=== PATIENT | female | born 1975 | race American Indian/Alaskan Native ===

== ENCOUNTER 2018-05-30 11:38 | Emergency (ER) | payer BC ==
--- NOTE | 2018-05-30 12:53 | Emergency Department Report ---
ED Dysuria HPI - HPI Chief Complaint: Vaginal Bleeding Stated Complaint: CHEST PAIN/HEAVY MENSTRAL FOR 1 MONTH Time Seen by Provider: 05/30/18 12:50 Duration: since 05-02 Severity: Severe Symptoms: Dysuria: No, Frequency: No, Suprapubic Pain: No, Flank Pain: No, Fever: No, Hematuria: No, Abdominal Pain: No, Previous UTI's: No Other History: 42 yo AA female with DUB since 05/02. hx fibroids with planned surgery later this month. current meds. zantac. amox. propranolol. integra ED Review of Systems ROS: Stated complaint: CHEST PAIN/HEAVY MENSTRAL FOR 1 MONTH Other details as noted in HPI Comment: All other systems reviewed and negative Constitutional: denies: chills Eyes: denies: eye pain ENT: denies: ear pain Respiratory: denies: cough Cardiovascular: denies: palpitations Endocrine: denies: excessive sweating Genitourinary: abnormal menses Musculoskeletal: denies: back pain Skin: denies: lesions Neurological: denies: headache Psychiatric: denies: anxiety Hematological/Lymphatic: denies: easy bleeding ED Past Medical Hx - Past Medical History Hx GERD: Yes Hx HIV: No Additional medical history: pancreatitis//anemia. uterine fibroids - Surgical History Past Surgical History?: No - Family History Family history: no significant - Social History Smoking Status: Never Smoker Substance Use Type: None Dysuria Exam - Exam General: Vital signs noted. No distress. Alert and acting appropriately. Exam: Yes Moist Mucous Membranes, No CVA Tenderness, No Abdominal Tenderness, No Rigidity or Guarding ED Course Vital Signs 05/30/18 11:43 Temperature 97.9 F Pulse Rate 82 Respiratory 18 Rate Blood Pressure 140/90 O2 Sat by Pulse 95 Oximetry ED Medical Decision Making - Lab Data Result diagrams: 05/30/18 12:30 05/30/18 12:30 - Medical Decision Making normal h/h Labs 05/30/18 05/30/18 05/30/18 12:30 12:30 12:35 WBC 4.0 L RBC 4.02 Hgb 11.5 Hct 35.8 MCV 89 MCH 29 MCHC 32 RDW 14.3 Plt Count 323 Sodium 139 Potassium 4.4 Chloride 101.2 Carbon Dioxide 23 Anion Gap 19 BUN 10 Creatinine 0.6 L Estimated GFR > 60 BUN/Creatinine Ratio 17 Glucose 82 Calcium 9.0 Troponin T < 0.010 Urine Color Yellow Urine Turbidity Clear Urine pH 5.0 Ur Specific [place] 1.003 Urine Protein <15 mg/dl Urine Glucose (UA) Neg Urine Ketones 20 Urine Blood Lg Urine Nitrite Neg Urine Bilirubin Neg Urine Urobilinogen < 2.0 Ur Leukocyte Esterase Neg Urine WBC (Auto) 4.0 Urine RBC (Auto) > 182.0 Urine Bacteria (Auto) 1+ - Differential Diagnosis dub Critical care attestation.: If time is entered above; I have spent that time in minutes in the direct care of this critically ill patient, excluding procedure time. ED Disposition Clinical Impression: DUB (dysfunctional uterine bleeding), Uterine fibroid Disposition: TO HOME OR SELFCARE Is pt being admited?: No Does the pt Need Aspirin: No Condition: Stable Instructions: Dysfunctional Uterine Bleeding (ED) Additional Instructions: follow up with your obgyn hydrate well continue your anemia medications blood counts today normal Referrals: NARENDRA HOFFMAN MD [Primary Care Provider] - 3-5 Days Time of Disposition: 13:10
[2018-05-30 12:56] LABS: Hematocrit 35.8 % (30.3-42.9); Hemoglobin 11.5 gm/dl (10.1-14.3); Mean Corpuscular HGB Conc 32 % (30-34); Mean Corpuscular Volume 89 fl (79-97); Platelet Count 323 K/mm3 (140-440); Red Blood Count 4.02 M/mm3 (3.65-5.03); Red Cell Distribution Width 14.3 % (13.2-15.2)
[2018-05-30 13:06] LABS: BUN/Creatinine Ratio 17; Blood Urea Nitrogen 10 mg/dL (7-17); Hemolysis Index 13
[2018-05-30 13:07] LABS: Bacteria,Urine 1+ /HPF (Negative); Bilirubin,Urine NEG (Negative); Blood,Urine LG (Negative); Color,Urine Yellow (Yellow); Protein,Urine <15 mg/dL mg/dL (Negative); Urobilinogen,Urine < 2.0 mg/dL (<2.0)
[2018-05-30 13:08] LABS: RBC,Urine > 182.0 /HPF (0.0-6.0)
[2018-05-30 13:18] VITALS: BP 136/81
[2018-05-30 13:37] LABS: HCG Qualitative,Urine Negative (Negative)
== END 2018-05-30 13:17 | disposition home or self-care (01) ==
LOC: ED 11:38
DX: N93.8 Other specified abnormal uterine and vaginal bleeding (principal); K21.9 Gastro-esophageal reflux disease without esophagitis; D25.9 Leiomyoma of uterus, unspecified; Z86.2 Personal history of diseases of the blood and blood-forming organs and certain disorders involving the immune mechanism; Z88.5 Allergy status to narcotic agent
CPT/HCPCS: 36415; 80048; 81001; 81025; 84484; 85027; 93005; 93010; 99283